=== PATIENT | male | born 1930 | race Caucasian/White ===

== ENCOUNTER → 2016-10-14 | Outpatient (CLI) | payer MEDICARE, MEDICAID ==
--- NOTE | 2016-10-14 17:23 | Diagnostic Imaging Report ---
PROCEDURE: US Carotid Duplex Bilateral. TECHNIQUE: Multiple real-time grayscale images were obtained over the carotid arteries in various projections bilaterally. Additional duplex Doppler and color Doppler images were also obtained. INDICATION: CVA with right-sided weakness. FINDINGS: There is dense atherosclerotic plaquing scattered within the carotid bulbs and into the internal carotid arteries bilaterally. No evidence of ulcerated plaques. There are no hemodynamic changes demonstrated. Peak velocities and waveforms are normal throughout the carotid and vertebral arteries with antegrade flow. The carotid ratios are normal and symmetrical. IMPRESSION: Moderate atherosclerotic plaquing within the carotid bulbs and internal carotid arteries bilaterally with maximal stenosis estimated 30% or less. Dictated by: Dictated on workstation # [id number]
== END ==
LOC: RAD 13:16
PROVIDERS: ATTEND Family Medicine
DX: I63.312 Cerebral infarction due to thrombosis of left middle cerebral artery (principal)
CPT/HCPCS: 93880